=== PATIENT | male | born 1995 ===

== ENCOUNTER 2016-10-25 13:11 | Day surgery (SDC) | payer BC ==
[2016-10-25] VITALS (12 sets, daily range): BP systolic 102–132; BP diastolic 49–74
[~2016-10-25] VITALS: Ht 182.9 cm; Wt 94.1 kg
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
[2016-10-25] MEDS ORDERED: ACETAMINOPHEN 500 MG TAB (TYLENOL) PO SCH (13:15)
[2016-10-25] MEDS ORDERED: oxyCODONE IMMEDIATE RELEASE 5 MG (OXYIR) TAB PO SCH (13:15)
[2016-10-25] MEDS ORDERED: SODIUM CHLORIDE FLUSH 3 ML SYR ONE (13:17)
[2016-10-25] MEDS ORDERED: LACTATED RINGERS 1,000 ML IV ONE (13:17)
[2016-10-25] MEDS ORDERED: SODIUM CHLORIDE FLUSH 3 ML SYR IV PRN (13:20)
[2016-10-25] MEDS ORDERED: LSRT50T PO (13:28)
--- NOTE | 2016-10-25 13:36 | Diagnostic Imaging Report ---
PROCEDURE: CT abdomen and pelvis with and without contrast. TECHNIQUE: Precontrast acquisitions were acquired through the abdomen and pelvis. Multiple contiguous axial images were obtained through the abdomen and pelvis after the administration of intravenous contrast. INDICATION: Right lower quadrant pain. FINDINGS: The appendix is edematous and mildly enlarged measuring approximately 11 mm in diameter. There is some mild mesenteric edema present as well surrounding the appendix. There is no free fluid or free air. No loculated abscesses are seen. The colon appears normal, otherwise. The stomach and small bowel are normal. The liver appears normal. Gallbladder and bile ducts are normal. Pancreas and spleen are normal. The adrenal glands are normal. The kidneys appear normal. There is normal enhancement of the abdominal organs and vessels following IV contrast. No pelvic masses or free fluid. Bladder is opacified on the delayed images. Ureters and collecting system appear normal. IMPRESSION: 1. There is mild enlargement of the appendix which is edematous in appearance measuring 11 mm in diameter with some adjacent periappendiceal edema of the mesentery. These findings were discussed with both Dr. Astorga and Dr. Gross. Dictated by: Dictated on workstation # [id number]
[2016-10-25] MEDS: PIPERACILLIN/TAZOBACTAM 3.375 GM in SODIUM CHLORIDE 50 ML IV SCH ×2 (13:37→14:38)
[2016-10-25] MEDS: LACTATED RINGERS 1,000 ML IV SCH ×2 (13:37→14:42)
[2016-10-25] MEDS ORDERED: PROPOFOL 20 ML IV ONE (14:32)
[2016-10-25] MEDS ORDERED: ROCURONIUM 50 MG/5 ML (ZEMURON) VIAL IV ONE (14:32)
[2016-10-25] MEDS ORDERED: ALFENTANIL 1,000 MCG/2 ML AMP IV ONE (14:32)
[2016-10-25] MEDS ORDERED: BUPIVACAINE/EPINEPHRINE 0.25%-1:200,000 (MARCAINE) 30 ML VIAL INJ ONE (15:18)
[2016-10-25] MEDS ORDERED: GLYCOPYRROLATE 0.2 MG/ML (ROBINUL) 1 ML VIAL ONE (16:08)
[2016-10-25] MEDS ORDERED: NEOSTIGMINE 1 MG/ML SYRINGE ONE (16:08)
[2016-10-25] MEDS ORDERED: KETOROLAC 60 MG/2 ML (TORADOL) VIAL IM ONE (16:08)
[2016-10-25] MEDS ORDERED: ACETAMINOPHEN 325 MG TAB (TYLENOL) PO PRN (16:25)
[2016-10-25] MEDS ORDERED: morphine INJ 2 MG/ML 1 ML SYRINGE IV PRN (16:25)
[2016-10-25] MEDS ORDERED: ONDANSETRON 2 MG/ML (Z0FRAN) 2 ML VIAL IV PRN (16:25)
--- NOTE | 2016-10-25 17:00 | NUR ---
Patient admitted to room 319 per cart from PACU. He is alert and able to make his needs known. Incisions are dry and intact. He reports adequate pain control at this time.
[2016-10-25] MEDS ORDERED: SODIUM CHLORIDE FLUSH 10 ML ONE (17:09)
[2016-10-25] MEDS ORDERED: NS FLUSH 10 ML PRN IV (17:15)
[2016-10-25] MEDS ORDERED: NS FLUSH 3 ML PRN IV (17:15)
--- NOTE | 2016-10-25 17:15 | NUR ---
Patient had a small amount of emesis. Gave Zofran 4 mg. IV.
--- NOTE | 2016-10-25 18:15 | NUR ---
Patient was able to sip some water and take a few bites of jello. Gave OxyIR for complaint of incisional pain rate 4/10.
[2016-10-25] MEDS: oxyCODONE IMMEDIATE RELEASE 5 MG (OXYIR) TAB PO PRN ×2 (18:22→23:13)
--- NOTE | 2016-10-25 19:15 | NUR ---
Incisions remain dry and intact. No redness noted.
[2016-10-26 00:15] VITALS: BP 124/52
[2016-10-26] MEDS: oxyCODONE IMMEDIATE RELEASE 5 MG (OXYIR) TAB PO PRN ×2 (04:07→08:47)
[2016-10-26 04:28] VITALS: BP 126/62
--- NOTE | 2016-10-26 06:23 | NUR ---
Patient rests in bed throughout night. Up with one assist to bathroom. Patient utilizes OxyIR as needed. No needs at this time.
[2016-10-26 07:23] VITALS: BP 112/64
--- NOTE | 2016-10-26 08:21 | OPERATIVE REPORT ---
DATE OF OPERATION: 10/25/2016 PRE-OPERATIVE DIAGNOSIS: Acute appendicitis POST-OPERATIVE DIAGNOSIS: Acute appendicitis OPERATIVE PROCEDURE: Laparoscopic appendectomy SURGEON: Bran Astorga MD REWEAVER: ELENA Wolff ANESTHESIA: General orotracheal POSITION: Trendelenburg with left rotation PREP: Chlorhexidine ESTIMATED BLOOD LOSS: 10 mL FINDINGS: 1. Mild acute appendicitis. 2. Normal cecum, terminal ileum, gallbladder and liver and peritoneal surfaces. DESCRIPTION OF PROCEDURE: Following satisfaction induction of anesthesia, the patient was prepped and draped in sterile fashion. Local anesthetic of 0.25% Marcaine with epinephrine was infiltrated at planned incision sites. A small vertical midline incision was made just above the umbilicus. This was carried down to and through the fascia under direct vision. The Aguila blunt tipped cannula was inserted and anchored to fascia with a pursestring suture of #0 Vicryl. the video laparoscope was introduced confirming intra-peritoneal placement. The peritoneal cavity was insufflated to maximum pressure of 15 mmHg with carbon dioxide. Two 5 mm cannulas were placed under direct vision in the suprapubic midline and left lower quadrant. Routine inspection revealed the above findings. The appendiceal mesentery was transected in multiple bites using the Harmonic scalpel. The base of the appendix was doubly ligated with #0 Vicryl Endoloops and a third Endoloop placed on the specimen side. The appendix was sharply transected and placed in specimen bag. With good hemostasis noted, closure was accomplished as follows. Accessory cannulas were removed under direct vision revealing good hemostasis at their insertion sites. The peritoneal cavity was deflated of excess carbon dioxide. The appendix in specimen bag was removed by way of the supraumbilical incision and submitted to pathology. Supraumbilical incision fascia was closed with the previously placed pursestring suture of #0 Vicryl. The skin incisions were closed with continuous subcuticular suture of 4-0 Monocryl and Dermabond dressing. The patient tolerated the procedure well and transferred to recovery in stable condition. Final instrument, needle and sponge counts correct.
--- NOTE | 2016-10-26 08:30 | NUR ---
Patient continues to have poor appetite. Offered regular diet this a.m. but he only ate a couple of bites. No difficulty with nausea.
--- NOTE | 2016-10-26 08:41 | Progress Note (E) ---
Progress Note Surgery note Subjective: Mild discomfort. Tolerating po well without nausea. Ambulating and voiding without difficulty. Objective: Vitals stable. Lungs clear. Abdomen soft with normal BS. Incisions intact. Impression: Condition is good. Recommendations: Discharge home. MATILDA CARDOZA MD Oct 26, 2016 08:41
--- NOTE | 2016-10-26 08:43 | Discharge Instructions (E) ---
Discharge Instructions Instructions Keep wounds clean. No dressing needed. May shower, but avoid immersion in water for 2 weeks. Call for fever over 100.5, wound redness or drainage, nausea, increased pain. Activity Instructions No lifting or straining over 20 lbs for [address] pain free, off pain meds. Resume other activity gradually, as is comfortable. Doctor's Appointment 2 weeks Discharge Diet: Regular MATILDA CARDOZA MD Oct 26, 2016 08:43
[2016-10-26] MEDS ORDERED: OXC5T PO (08:44)
--- NOTE | 2016-10-26 08:59 | NUR ---
Ambulated the halls without difficulty.
[2016-10-26] MEDS ORDERED: NS FLUSH 3 ML DAILY IV SCH (09:00)
--- NOTE | 2016-10-26 09:47 | NUR ---
Reviewed discharge medications with patient. No additional questions or concerns. Patient verbalized understanding of medications. Conducted by Mali Thomas, PharmD Candidate.
== END 2016-10-26 10:02 | disposition home or self-care (01) ==
LOC: ASC 13:11 → MED/SURG 16:56 → ASC 10-26 10:02
PROVIDERS: ATTEND Surgery
DX: K36 Other appendicitis (principal)
CPT/HCPCS: 44970; 74178; J1885; J2405; J2543; J2710; J3490; J7030; J7120; Q9967

== ENCOUNTER → 2016-10-25 | Outpatient (REF) | payer BC ==
[~2016-10-25] MED LIST: LSRT50T PO; OXC5T PO
[2016-10-25 09:46] LABS: BILIRUBIN,URINE Negative (Negative); CLARITY,URINE Clear; COLOR,URINE Yellow; GLUCOSE, URINE (UA) Negative (Negative); LEUKOCYTE ESTERASE ,URINE Negative (Negative); UROBILINOGEN,URINE 0.2 mg/dL (0.2-1.0)
[2016-10-25 09:54] LABS: BASOPHILS % (AUTO) 0 % (0-2); EOSINOPHILS # (AUTO) 0.1 10^3uL; EOSINOPHILS % (AUTO) 1 % (0-4); MEAN CORPUSCULAR HEMOGLOBIN 30.2 PG (26.0-34.0); MEAN CORPUSCULAR HGB CONC 35.2 g/dL (31.0-37.0); MEAN CORPUSCULAR VOLUME 86 FL (80-100); MEAN PLATELET VOLUME 9.9 FL (6.0-9.5); MONOCYTES # (AUTO) 0.6 X10^3; MONOCYTES % (AUTO) 9 % (3-11); NEUTROPHILS # (AUTO) 3.6 X10^3; NEUTROPHILS % (AUTO) 58 % (51-67); PLATELET COUNT 250 10^3uL (150-450); WHITE BLOOD COUNT 6.23 10^3uL (4.0-11.0)
[2016-10-25 10:23] LABS: ALBUMIN 4.7 g/dL (3.4-5.0); ANION GAP 18.2 MEQ/L (3-15); CALCULATED IONIZED CALCIUM 4.2 mg/dL (3.8-4.6); TOTAL PROTEIN 7.7 g/dL (6.4-8.5)
== END ==
LOC: LAB 09:30
PROVIDERS: ATTEND Family Medicine
DX: R10.31 Right lower quadrant pain (principal)
CPT/HCPCS: 80053; 81003; 83690; 85025